=== PATIENT | female | born 2000 | race Caucasian/White ===

== ENCOUNTER 2021-08-13 16:11 | Inpatient (IN) ==
[~2021-08-13 16:11] MED LIST: *HR* Nalbuphine 10 MG/ML AMPUL IV PRN; Azithromycin 500 MG in 0.9 % Sodium Chloride 250 ML IVPB PRN; Famotidine 20 MG/2 ML VIAL IVP PRN; Lidocaine 1% 20 ML MDV INFILT PRN; Metoclopramide 10 MG/2 ML VIAL IVP PRN; Naloxone 0.4 MG/ML INJ IVP PRN; Ondansetron 4 MG/2 ML VIAL IVP PRN
[2021-08-13] MEDS ORDERED: miSOPROStoL 25 MCG TABLET PO PRN (16:30)
[2021-08-13 17:54] LABS: Basophils # 0.1 K/mcL (0.0-0.2); Basophils % 0.6 %; Eosinophils # 0.3 K/mcL (0.0-0.6); Eosinophils % 2.4 %; Hematocrit 36.2 % (35.3-44.9); Hemoglobin 12.1 g/dL (11.5-15.4); Immature Granulocytes % 0.3 % (0-4); Lymphocytes # 2.2 K/mcL (0.6-4.6); Lymphocytes % 19.1 %; Mean Corpuscular HGB Conc 33.4 g/dL (31.6-35.5); Mean Corpuscular Hemoglobin 30.2 pg (28.0-33.3); Mean Corpuscular Volume 90.3 fL (83.0-100.0); Monocytes # 0.9 K/mcL (0.0-1.3); Monocytes % 7.8 %; Platelet Count 203 K/mcL (140-400); Red Blood Count 4.01 M/mcL (3.82-4.97); Red Cell Distribution Width 13.4 % (11.5-14.5); Segmented Neutrophils % 69.8 %; White Blood Count 11.4 K/mcL (4.3-11.1)
[2021-08-13 18:04] LABS: Amphetamine Screen,Urine Negative ng/mL (Cutoff=1000); Barbiturate Screen,Urine Negative ng/mL (Cutoff=200); Benzodiazepines Screen,Urine Negative ng/mL (Cutoff=200); Cannabinoid Screen,Urine Negative ng/mL (Cutoff = 50); Cocaine Screen,Urine Negative ng/mL (Cutoff= 300); Opiate Screen,Urine Negative ng/mL (Cutoff=300); Phencyclidine Screen,Urine Negative ng/mL (Cutoff=25)
[2021-08-13 18:39] LABS: Influenza A PCR Negative (Negative); Influenza B PCR Negative (Negative); Resp. Syncytial Virus PCR Negative (Negative)
[2021-08-13 18:44] LABS: SARS-CoV-2 by PCR (In House) Negative (Negative)
[2021-08-13] MEDS ORDERED: EPHEDrine 50 MG/ML VIAL IVP PRN (21:59)
[2021-08-14] MEDS ORDERED: Oxytocin 20 units/ LR 1000 mL 20 UNIT/1,000 ML BAG IVC SCH (01:00)
[2021-08-14] MEDS: Ringers Solution, Lactated 1,000 ML IVC SCH ×4 (09:27→20:02)
[2021-08-14] MEDS: Oxytocin 20 units/ LR 1000 mL 20 UNIT/1,000 ML BAG IVC SCH ×2 (09:28→14:43)
[2021-08-14] MEDS ORDERED: Ropivacaine/PF 0.2% 20 ML VIAL ONE (09:30)
[2021-08-14] MEDS ORDERED: *HR* FentaNYL (PF) 100 MCG/2 ML VIAL ONE (09:30)
[2021-08-14] MEDS: Epidural Premix (fent/bupiv) 110 ML EP SCH (10:11)
[2021-08-15] MEDS: Epidural Premix (fent/bupiv) 110 ML EP SCH (01:15)
[2021-08-15] MEDS ORDERED: Ampicillin 2,000 MG in 0.9 % Sodium Chloride Mini Bag 100 ML IVPB ONE (03:14)
[2021-08-15] MEDS ORDERED: Gentamicin 380 MG in 0.9 % Sodium Chloride 100 ML IVPB ONE (03:45)
[2021-08-15] MEDS: Ringers Solution, Lactated 1,000 ML IVC SCH (03:52)
[2021-08-15] MEDS ORDERED: Methylergonovine 0.2 MG/ML AMPUL IM ONE (04:00)
[2021-08-15] MEDS ORDERED: *HR* Oxytocin 10 UNIT/ML VIAL IM ONE (04:00)
[2021-08-15] MEDS ORDERED: *HR* OxyCODONE Immed Rel 5 MG TABLET PO PRN ×2 (04:29→07:54)
[2021-08-15] MEDS ORDERED: Ibuprofen 600 MG TABLET PO ONE (04:30)
[2021-08-15] MEDS ORDERED: Ondansetron ODT 4 MG TAB.RAPDIS SL PRN (07:54)
[2021-08-15] MEDS ORDERED: Lanolin 7 G OINT...G. TP PRN (07:54)
[2021-08-15] MEDS ORDERED: Rho Immune Globulin 1,500 UNIT SYRINGE IM PRN (07:54)
[2021-08-15] MEDS ORDERED: Benzocaine/Menthol 56 GM AEROSOL SPRAY TP PRN (07:54)
[2021-08-15] MEDS ORDERED: Oxytocin 20 units/ LR 1000 mL 20 UNIT/1,000 ML BAG IVC SCH (07:54)
[2021-08-15] MEDS: Ibuprofen 600 MG TABLET PO SCH ×3 (08:50→23:50)
[2021-08-15] MEDS: Prenatal Vit/FA 1 EACH TABLET PO SCH (08:50)
[2021-08-15] MEDS: Acetaminophen 325 MG TABLET PO SCH ×3 (08:51→23:50)
[2021-08-15 19:47] VITALS: O2SAT 97
[2021-08-16 05:12] LABS: Basophils # 0.1 K/mcL (0.0-0.2); Basophils % 0.4 %; Eosinophils # 0.4 K/mcL (0.0-0.6); Eosinophils % 2.6 %; Hematocrit 26.7 % (35.3-44.9); Immature Granulocytes % 0.3 % (0-4); Lymphocytes # 2.9 K/mcL (0.6-4.6); Lymphocytes % 19.7 %; Mean Corpuscular HGB Conc 31.8 g/dL (31.6-35.5); Mean Corpuscular Hemoglobin 29.5 pg (28.0-33.3); Mean Corpuscular Volume 92.7 fL (83.0-100.0); Mean Platelet Volume 12.7 fL (9.4-12.4); Monocytes # 1.1 K/mcL (0.0-1.3); Neutrophils # 10.4 K/mcL (1.6-8.9); Platelet Count 178 K/mcL (140-400); Red Blood Count 2.88 M/mcL (3.82-4.97); White Blood Count 14.9 K/mcL (4.3-11.1)
[2021-08-16 05:16] LABS: Hemoglobin 8.5 g/dL (11.5-15.4)
[2021-08-16] MEDS: Ibuprofen 600 MG TABLET PO SCH (06:30)
[2021-08-16] MEDS: Acetaminophen 325 MG TABLET PO SCH (06:30)
[2021-08-16 07:15] VITALS: BP 116/60; PULSE 76; TEMP 97.9
[2021-08-16] MEDS: Prenatal Vit/FA 1 EACH TABLET PO SCH (07:56)
== END 2021-08-16 17:12 | disposition home or self-care (01) | DRG 807 ==
LOC: 1NENULAB → 1NENUOBS 08-15 07:54
PROVIDERS: ADMIT Registered Nurse; ATTEND Registered Nurse